=== PATIENT | female | born 1995 ===

== ENCOUNTER 2020-11-26 11:02 | Day surgery (SDC) | payer BC ==
[2020-11-22 09:15] LABS: HEMATOCRIT 35.6 % (36.0-47.0); HEMOGLOBIN 11.8 g/dL (12.0-15.5); MEAN CORPUSCULAR HEMOGLOBIN 28.1 pg (27.0-33.4); MEAN CORPUSCULAR HGB CONC 33.2 g/dL (32.0-36.0); MEAN CORPUSCULAR VOLUME 85 fl (80-97); PLATELET COUNT 284 10^3/uL (150-450); RED CELL DISTRIBUTION WIDTH 14.8 % (11.5-14.0); WHITE BLOOD COUNT 6.9 10^3/uL (4.0-10.5)
[2020-11-22 09:39] LABS: ANION GAP 6 (5-19); BLOOD UREA NITROGEN 24 mg/dL (7-20); CALCIUM 9.2 mg/dL (8.4-10.2); CARBON DIOXIDE 27 mmol/L (22-30); CHLORIDE 103 mmol/L (98-107); GLUCOSE 89 mg/dL (75-110); POTASSIUM 4.6 mmol/L (3.6-5.0)
[~2020-11-26 11:02] MED LIST: ACETAMINOPHEN 1,000 MG/100 ML RTUPB IV ONE; ACETAMINOPHEN 1,000 MG/100 ML RTUPB IV PRN; IBUPROFEN 800 MG in NORMAL SALINE 250 ML IV PRN; LACTATED RINGERS 1000 ML IV PRN; LIDOCAINE 0.5% INJ-PF (5 MG/ML) 50 ML SDV SUBCUT PRN; METRONIDAZOLE 500 MG/NS RTU 500 MG/100 ML RTUPB IV ONE; METRONIDAZOLE 500 MG/NS RTU 500 MG/100 ML RTUPB IV PRN
[2020-11-26] MEDS ORDERED: FENTANYL CITRATE INJ/PF 100 MCG/2 ML AMPUL ONE (11:55)
[2020-11-26] MEDS ORDERED: HYDROMORPHONE HCL INJ/PF 2 MG/ML AMPULE ONE (11:55)
[2020-11-26] MEDS ORDERED: SUGAMMADEX SODIUM 200 MG/2 ML SDV IV ONE (11:55)
[2020-11-26] MEDS ORDERED: PROPOFOL INJ 200 MG/20 ML VIAL IV ONE (11:55)
[2020-11-26] MEDS ORDERED: EPHEDRINE SULFATE INJ 50 MG/1 ML AMPULE ONE (11:55)
[2020-11-26] MEDS ORDERED: MIDAZOLAM 2 MG/2 ML INJ ONE (11:55)
[2020-11-26] MEDS ORDERED: LIDOCAINE 2% JELLY 30 ML TUBE ONE (12:01)
[2020-11-26] MEDS ORDERED: BACITRACIN ZINC OINTMENT 15 GM ONE (12:01)
[2020-11-26] MEDS ORDERED: BUPIVACAINE INJ/PF LIPOSOME/PF 266 MG/20 ML SDV ONE (12:01)
[2020-11-26] MEDS ORDERED: PROMETHAZINE HCL INJ 25 MG/1 ML VIAL IV PRN ×2 (13:04)
[2020-11-26] MEDS ORDERED: FENTANYL CITRATE INJ/PF 100 MCG/2 ML AMPUL IV PRN ×3 (13:04)
[2020-11-26] MEDS ORDERED: OXYCODONE-ACETAMINOPHEN 5-325 MG TABLET PO PRN ×2 (13:04)
[2020-11-26] MEDS ORDERED: MORPHINE SULFATE 10 MG/ML INJ IV PRN (13:04)
[2020-11-26] MEDS ORDERED: DIPHENHYDRAMINE HCL 50 MG/ML VIAL IV PRN (13:04)
[2020-11-26] MEDS ORDERED: MEPERIDINE HCL/PF INJ 25 MG/1 ML DISP.SYRIN IV PRN (13:04)
--- NOTE | 2020-11-26 13:21 | Operative Report ---
Nonrecallable Operative Report DATE OF SURGERY: 11/26/20 PREOPERATIVE DIAGNOSIS: Symptomatic internal and external hemorrhoids POSTOPERATIVE DIAGNOSIS: Same as above OPERATION: 1. Surgical excision of internal and external hemorrhoids, left lateral column. 2. Rubber band ligation of internal hemorrhoids in the right posterior position. SURGEON: SEBASTIAN BECK CUBE CUTTER: CASSEI MENESES ANESTHESIA: GA TISSUE REMOVED OR ALTERED: Left lateral internal and external hemorrhoid column COMPLICATIONS: None apparent ESTIMATED BLOOD LOSS: Minimal PROCEDURE: Drains/implants: None. Procedure in detail: After informed consent was obtained, the patient was brought to the operating room and laid in the prone jackknife position. The area of the anus and rectum were prepped and draped in a normal sterile fashion. An anal block was created using Exparel. There was an enlarged external hemorrhoid in the left lateral position. Next, a Hill-Antonio retractor was inserted into the rectum. There were enlarged hemorrhoids in the left lateral and right posterior positions. The left lateral hemorrhoids were excised using electrocautery from the internal position to the external. After the hemorrhoid was excised, it was passed off the field. The resulting defect was closed using 3-0 chromic suture in simple running fashion. Great care was taken to reapproximate mucosa to mucosa, anoderm to anoderm, and skin to skin. Once this was completed, attention was turned to examination of the remainder of the anus. No other external hemorrhoids could be identified, however there were internal hemorrhoids in the right posterior position. The rubber band ligation device was then used to ligate hemorrhoids in the right posterior position. 2 rubber bands were deployed. The patient tolerated the procedure well. A dressing was placed, and the procedure was concluded. All sponge, instrument, and needle counts were correct x2. Condition: Stable. Cassie Henderson PA-C was scrubbed and present the entirety the procedure. She assisted with all portions of the procedure including removal of the hemorrhoids, placement of the rubber bands, placement of the dressing.
[2020-11-26] MEDS ORDERED: HYDROCODONE/ACETAMINOPHEN 10-325 MG TABLET PO PRN (13:33)
--- NOTE | 2020-11-26 13:33 | Discharge Summary ---
Discharge Summary (SDC) - Discharge Final Diagnosis: internal and external hemorrhoids Date of Surgery: 11/26/20 Discharge Date: 11/26/20 Condition: Stable Treatment or Instructions: Discharge home. Diet as tolerated. Activity: No strenuous activity. [place] 10/3 2 5 mg p.o. every 6 hours as needed for pain. Ibuprofen 800 mg p.o. 3 times daily with meals. Neosporin [id number] ointment to anus 3 times daily. Lidocaine 5% ointment/cream to anus 3 times daily. Warm sits baths in soapy water 3 times daily and after bowel movements. Prescriptions: Hydrocodone/Acetaminophen [[place] 10-325 mg Tablet] 1 tab PO Q6HP PRN #28 tablet PRN Reason: For Pain Referrals: LUCIA JOHNS MD [Primary Care Provider] - Discharge Diet: As Tolerated Respiratory Treatments at Home: Deep Breathing/Coughing, Incentive Spirometer Discharge Activity: Balance Activity w/Rest Home Care Assistance: None Needed Report the Following to Your Physician Immediately: Shortness of Breath, Nausea, Vomiting, Increase in Pain, Fever over 101 Degrees, Unusual Bleeding, Redness, Swelling, Warmth
[2020-11-26] MEDS ORDERED: OXYCODONE-ACETAMINOPHEN 5-325 MG TABLET ONE (13:39)
[2020-11-26 15:17] VITALS: BP 147/92
[2020-11-26] MEDS ORDERED: ONDANSETRON HCL INJ/PF 4 MG/2 ML SDV ONE (15:50)
[2020-11-26] MEDS ORDERED: ROCURONIUM BROMIDE INJ 50 MG/5 ML VIAL IV ONE (15:50)
[2020-11-26] MEDS ORDERED: SUCCINYLCHOLINE CHLORIDE INJ 200 MG/10 ML VIAL ONE (15:50)
[2020-11-26] MEDS ORDERED: DEXAMETHASONE SOD PHOSPHATE INJ 4 MG/1 ML VIAL ONE (15:50)
[2020-11-26] MEDS ORDERED: METOCLOPRAMIDE HCL INJ/PF 10 MG/2 ML SDV ONE (15:50)
[2020-11-26] MEDS ORDERED: DIPHENHYDRAMINE HCL 50 MG/ML VIAL ONE (15:50)
== END 2020-11-26 15:05 | disposition home or self-care (01) ==
LOC: OROUT 11:02
PROVIDERS: ATTEND Surgery
DX: K64.4 Residual hemorrhoidal skin tags (principal); K64.8 Other hemorrhoids; F31.9 Bipolar disorder, unspecified; Z01.812 Encounter for preprocedural laboratory examination; Z20.822 Contact with and (suspected) exposure to COVID-19; Z79.899 Other long term (current) drug therapy; Z90.49 Acquired absence of other specified parts of digestive tract; F17.210 Nicotine dependence, cigarettes, uncomplicated
CPT/HCPCS: 36415; 85027; 81025; 80048; 88304 ×2; 46255; U0003; J2250; J3490 ×3; J1100; J1200; J3010; J2765; J0330; J2405; J7050; J2704; J0131; C9290; J1741; C9803; 87635; 902; J1170